=== PATIENT | male | born 1995 | race American Indian/Alaskan Native ===

== ENCOUNTER 2018-12-17 15:38 | Emergency (ER) | payer OTHER ==
[2018-12-17 15:59] VITALS: BP 117/59
--- NOTE | 2018-12-17 15:59 | Emergency Department Report ---
Blank Doc - Documentation Documentation: This is a 23-year-old male that presents with lower back pain s/p fall. Denies any other injuries or complaints. This initial assessment/diagnostic orders/clinical plan/treatment(s) is/are subject to change based on patient's health status, clinical progression and re-assessment by fellow clinical providers in the ED. Further treatment and workup at subsequent clinical providers discretion. Patient/guardians urged not to elope from the ED as their condition may be serious if not clinically assessed and managed. Initial orders include: 1- Patient sent to [facility] for further evaluation and treatment 2- xray
--- NOTE | 2018-12-17 17:07 | XRay Report ---
PROCEDURE: XR SPINE LUMBOSACRAL 2-3V TECHNIQUE: Number spine 2 views HISTORY: low back pain COMPARISONS: FINDINGS: Vertebral bodies demonstrate normal height and alignment. Disc spaces are within normal limits. No ev idence for spondylolisthesis. Spinous and transverse processes are intact. SI joints are palpable. IMPRESSION: Negative lumbar spine series. This document is electronically signed by Bashir Fitch MD., Dec 17 2018 05:05:34 PM ET
--- NOTE | 2018-12-17 17:49 | Emergency Department Report ---
ED Back Pain/Injury HPI - General Chief Complaint: Fall Stated Complaint: BACK PAIN Time Seen by Provider: 12/17/18 15:58 Source: patient Limitations: No Limitations - History of Present Illness Initial Comments: Pt is a 23 yo male who presents to the ED with c/o lower back pain that began three days ago. He states that he fell onto the concrete steps onto his lower back. He has been ambulatory without difficulty. The patient denies any numbness, weakness, bowel/bladder incontinence. The patient has not taken anything to relieve his sx. He denies any PMHx, no daily medications, no allergies to medications. - Related Data Previous Rx's Medication Instructions Recorded Last Taken Type Cyclobenzaprine [Flexeril] 10 mg PO QHS PRN #10 tablet 12/17/18 Unknown Rx Ibuprofen 800 mg PO Q6HR PRN #20 tablet 12/17/18 Unknown Rx Allergies Allergy/AdvReac Type Severity Reaction Status Date / Time No Known Allergies Allergy Unverified 01/31/15 14:52 ED Review of Systems ROS: Stated complaint: BACK PAIN Other details as noted in HPI Comment: All other systems reviewed and negative ED Past Medical Hx - Social History Smoking Status: Current Some Day Smoker Substance Use Type: Alcohol - Medications Home Medications: Home Medications Medication Instructions Recorded Confirmed Last Taken Type Cyclobenzaprine [Flexeril] 10 mg PO QHS PRN #10 tablet 12/17/18 Unknown Rx Ibuprofen 800 mg PO Q6HR PRN #20 tablet 12/17/18 Unknown Rx ED Physical Exam - General Limitations: No Limitations General appearance: alert, in no apparent distress - Head Head exam: Present: atraumatic, normocephalic - Eye Eye exam: Present: normal appearance, PERRL - Respiratory Respiratory exam: Present: normal lung sounds bilaterally. Absent: respiratory distress, wheezes, rales, rhonchi, stridor, chest wall tenderness, accessory muscle use, decreased breath sounds, prolonged expiratory - Cardiovascular Cardiovascular Exam: Present: regular rate, normal rhythm, normal heart sounds. Absent: systolic murmur, diastolic murmur, rubs, gallop - Back Exam Back exam: Present: normal inspection, full ROM, paraspinal tenderness (mild right sided paraspinal muscular TTP, no midline C-spine, T-spine, or L-spine t enderness, no step offs, no deformities). Absent: vertebral tenderness - Neurological Exam Neurological exam: Present: alert, oriented X3, CN II-XII intact, normal gait. Absent: motor sensory deficit - Psychiatric Psychiatric exam: Present: normal affect, normal mood - Skin Skin exam: Present: warm, dry, intact ED Course Vital Signs 12/17/18 15:56 Temperature 98.3 F Pulse Rate 73 Respiratory 18 Rate Blood Pressure 117/59 [Left] O2 Sat by Pulse 100 Oximetry ED Medical Decision Making - Radiology Data Radiology results: report reviewed PROCEDURE: XR SPINE LUMBOSACRAL 2-3V TECHNIQUE: Number spine 2 views HISTORY: low back pain COMPARISONS: FINDINGS: Vertebral bodies demonstrate normal height and alignment. Disc spaces are within normal limits. No evidence for spondylolisthesis. Spinous and transverse processes are intact. SI joints are palpable. IMPRESSION: Negative lumbar spine series. This document is electronically signed by Bashir Sun MD., Dec 17 2018 05:05:34 PM ET Transcribed By: YANNA Dictated By: NEELIMA SUN MD Electronically Authenticated By: NEELIMA SUN MD Signed Date/Time: 12/17/18 3049 - Medical Decision Making Pt is a 23 yo male who presents to the ED with c/o lower back pain that began three days ago. He states that he fell onto the concrete steps onto his lower back. He has been ambulatory without difficulty. The patient denies any numbness, weakness, bowel/bladder incontinence. The patient has not taken anything to relieve his sx. He denies any PMHx, no daily medications, no allergies to medications. Will tx pt for muscle strain. Given anti-inflammatory and short course of muscle relaxer. Advised to only use muscle relaxer at night as needed and do not drive or operate heavy machinery while taking. May use ice, heating pad, rest, epsom salt bath. Follow up with primary care doctor in the next 2-3 days. Return to the emergency room for any new or worsening symptoms. vitals are normal. XR of the L-spine with no acute process. On examination has mild right lumbar paraspinal muscular TTP, no midline tenderness, no step offs, no deformities, no neuro deficit. Will tx pt for muscle strain. Given anti- inflammatory and short course of muscle relaxer. Advised to only use muscle relaxer at night as needed and do not drive or operate heavy machinery while taking. May use ice, heating pad, rest, epsom salt bath. Follow up with primary care doctor in the next 2-3 days. Return to the emergency room for any new or worsening symptoms. - Differential Diagnosis strain, sprain, fx, dislocation Critical care attestation.: If time is entered above; I have spent that time in minutes in the direct care of this critically ill patient, excluding procedure time. ED Disposition Clinical Impression: Lumbar strain Qualifiers: Encounter type: initial encounter Qualified Code(s): S39.012A - Strain of muscle, fascia and tendon of lower back, initial encounter Disposition: TO HOME OR SELFCARE Is pt being admited?: No Does the pt Need Aspirin: No Condition: Stable Instructions: Muscle Strain (ED) Additional Instructions: Take medication as prescribed. Only use muscle relaxer at night as needed and do not drive or operate heavy machinery while taking. May use ice, heating pad, rest, epsom salt bath. Follow up with primary care doctor in the next 2-3 days. Return to the emergency room for any new or worsening symptoms. Prescriptions: Cyclobenzaprine [Flexeril] 10 mg PO QHS PRN #10 tablet PRN Reason: Muscle Spasm Ibuprofen 800 mg PO Q6HR PRN #20 tablet PRN Reason: Pain, Moderate (4-6) Referrals: [facility] [Provider Group] - 2-3 Days Time of Disposition: 17:52 Print Language: CZECH
== END 2018-12-17 18:14 | disposition home or self-care (01) ==
LOC: ED 15:38
DX: S39.012A Strain of muscle, fascia and tendon of lower back, initial encounter (principal); F17.200 Nicotine dependence, unspecified, uncomplicated; W18.30XA Fall on same level, unspecified, initial encounter; Y93.89 Activity, other specified; Y92.89 Other specified places as the place of occurrence of the external cause; Y99.8 Other external cause status
CPT/HCPCS: 72100